=== PATIENT | female | born 1940 | race Caucasian/White ===

== ENCOUNTER → 2016-06-02 | Outpatient (CLI) | payer MEDICARE, OTHER | LOC: MAMO 10:27 | DX: Z12.31 Encounter for screening mammogram for malignant neoplasm of breast (principal); Z90.710 Acquired absence of both cervix and uterus | CPT/HCPCS: G0202 ==

== ENCOUNTER → 2016-07-14 | Outpatient (CLI) | payer MEDICARE, OTHER | LOC: HEART 5 07-08 08:00 | DX: R07.9 Chest pain, unspecified (principal); I34.0 Nonrheumatic mitral (valve) insufficiency; I07.1 Rheumatic tricuspid insufficiency; I27.2 Other secondary pulmonary hypertension | CPT/HCPCS: 93306 ==